=== PATIENT | male | born 1970 | race Caucasian/White ===

== ENCOUNTER 2020-10-27 15:08 | Emergency (ER) | payer OTHER ==
[~2020-10-27] VITALS: Ht 170.2 cm; Wt 83.9 kg
[2020-10-27 15:11] VITALS: BP 157/100
--- NOTE | 2020-10-27 15:43 | NUR ---
Patient discharged to home in stable condition. Written and verbal after care instructions given. Patient verbalizes understanding of instruction.
== END 2020-10-27 15:43 | disposition home or self-care (01) ==
LOC: ER 15:16
DX: R03.0 Elevated blood-pressure reading, without diagnosis of hypertension (principal)